=== PATIENT | male | born 1935 | race Caucasian/White ===

== ENCOUNTER → 2020-10-17 | Outpatient (CLI) | payer MEDICARE ==
[~2020-10-17] MED LIST: GADOTERATE 7.5 MMOL/15ML VIAL. IVP ONE
--- NOTE | 2020-10-17 15:29 | KCIC ---
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 Technique: Unenhanced T1-weighted sagittal and axial and FLAIR, T2-weighted, gradient echo and diffus ion-weighted axial images of the brain were obtained. Thin section T1-weighted axial and T2-weighted axial and coronal images through the IACs were obtained. After the intravenous administration of 10 c c of Clariscan, enhanced T1-weighted axial and coronal images of the brain were obtained. Additionall y enhanced thin section T1-weighted axial and coronal images through the IACs were obtained. Findings:No previous imaging studies are available for comparison There is generalized parenchymal atrophy. Patchy, confluent and multiple small focal areas of abnorma lly increased signal intensity are seen within the periventricular and subcortical white matter poste rolateral hemispheres on FLAIR and T2-weighted images consistent with areas of small vessel ischemic disease. No acute parenchymal abnormality is seen. No extra-axial fluid collection is seen. There is no MRI evidence of acute ischemia/infarction. No abnormal area contrast enhancement is seen. MRI images through the IACs are within normal limits. No abnormal soft tissue mass or area of abnorma l contrast enhancement is seen. The patient is post ethmoidectomy bilaterally. Postsurgical changes are seen involving the medial wal ls of both maxillary sinuses. Mild to moderate mucosal thickening is seen throughout the remaining pa ranasal sinuses. There is a minimal right mastoid effusion. Normal flow voids are seen within the moises or vascular structures surrounding the brain parenchyma. Impression: 1. No acute parenchymal abnormality is seen. 2. Negative MRI of the IACs. Electronically signed by: Vinay Navarrete MD (10/17/2020 3:26 PM) [place] [id number]
== END ==
LOC: KCIC MRI 09:50
PROVIDERS: ATTEND Otolaryngology
DX: H91.8X2 Other specified hearing loss, left ear (principal)
CPT/HCPCS: 70553; 82565; A9575

== ENCOUNTER 2021-11-13 12:21 | Emergency (ER) | payer MEDICARE ==
[~2021-11-13] VITALS: Ht 172.7 cm; Wt 63.6 kg
--- NOTE | 2021-11-13 13:35 | RAD ---
Exam Date: 11/13/2021 1:[address] HEAD AND C-SPINE WO Indication: Reason: fall down stairs / Spl. Instructions: / History: . One or more of the following dose reduction techniques were utilized: *Automated exposure control (AEC) *Adjustment of mA and/or kV according to patient size *Use of iterative reconstruction technique *CT scan done according to ALARA, or ALARA/IMAGE GENTLY EXAMINATION: CT OF THE HEAD WITHOUT CONTRAST INDICATION: Trauma, head injury, headache; TECHNIQUE: Noncontrast helical axial CT images of the head were obtained. FINDINGS: The ventricles and sulci are prominent consistent with cerebral volume loss. Patchy ill-defined low attenuation areas in the subcortical and periventricular white matter bilaterally are consistent with microvascular disease. There is no evidence of acute intracranial hemorrhage, extra-axial collecti on, mass effect, midline shift, or acute territorial infarct. No lesion of the skull base or the calv arium is seen. The visualized mastoid air cells, and orbits are normal in appearance. There is parti al opacification of the paranasal sinuses. Postoperative changes of left middle meatal antrostomies are noted. IMPRESSION: No evidence for acute intracranial abnormality. Volume loss and microvascular disease. EXAMINATION: CT OF THE CERVICAL SPINE WITHOUT CONTRAST Clinical Indication: Cervical spine pain after trauma Technique: Thin cut helical axial CT images through the cervical spine were obtained without contrast on a multi-detector CT scanner. Source data was then reconstructed into sagittal and coronal planes. Findings: There is minimal grade 1 anterolisthesis of C2 on C3, likely degenerative. Moderate multilevel degen erative changes are noted.. Vertebral body heights are maintained without acute fracture. No significant prevertebral soft tissue swelling is demonstrated. No severe osseous central canal stenosis is seen. Impression: No evidence of acute cervical spine fracture. Moderate degenerative changes noted. Electronically signed by: Russell Jo MD (11/13/2021 1:32 PM) [facility]
--- NOTE | 2021-11-13 13:48 | PHYS DOC ---
Past Medical History Past Medical History: No Pertinent History Additional Past Medical Histor: presbycusis (KARISSA WOOD) Past Surgical History: No Surgical History (KARISSA WOOD) Smoking Status: Former Smoker Alcohol Use: None Drug Use: None (KARISSA WOOD) General Adult EDM: Chief Complaint: LOWER EXT PAIN HPI: HPI: Patient is a 86 year old male who presents with left-sided shoulder, hip, or leg pain after a gun case fell on him. He was moving the gun safe up some stairs on a [place] with a friend. They got about 4 steps up when the safe fell onto the patient, causing him to fall to his left side. Patient's friend at bedside was further up the stairs, while the patient was behind the safe on the stairs. Patient's friend states that the safe had "some momentum" when it fell. Patient does not take any daily medications, including blood thinners. He is describes his pain as "soreness." He has a complaint of a small laceration to the left mckeon as well. Patient denies head trauma, loss of consciousness, headache, neck pain, focal weakness. (KARISSA WOOD) Review of Systems: Review of Systems: Constitutional: Denies fever, chills or generalized weakness Eyes: Denies change in visual acuity, visual field deficits or discharge HENT: Denies ear pain, nasal congestion or sore throat Respiratory: Denies cough or shortness of breath Cardiovascular: Denies chest pain, palpitations or edema GI: Denies abdominal pain, nausea, vomiting, bloody stools or diarrhea : Denies dysuria or hematuria Musculoskeletal: See HPI Integument: Denies rash or other skin lesion Neurologic: See HPI (KARISSA WOOD) Heart Score: C/O Chest Pain: No (KARISSA WOOD) Allergies: Allergies: Allergies Coded Allergies Type Severity Reaction Last Updated Verified No Known Drug Allergies 12/28/13 No (KARISSA WOOD) Physical Exam: PE: Constitutional: Well developed, well nourished, no acute distress, non-toxic appearance. HENT: Normocephalic, atraumatic, bilateral external ears without deformity/ecchymosis or discharge, oropharynx moist, no oral exudates, nose without deformity or discharge. Eyes: PERRLA, EOMI, conjunctiva normal, no discharge. Neck: Normal range of motion, no step-off, no midline tenderness, no paraspinal tenderness, supple, no stridor. Cardiovascular: Heart rate regular rhythm, no murmur. Lungs & Thorax: Bilateral breath sounds clear to auscultation. Abdomen: Bowel sounds normal, soft, no tenderness, no masses, no pulsatile masses. Skin: 1 cm laceration to medial aspect L mckeon, wound with some active bleeding on exam (pressure dressing subsequently applied). Warm, dry, no erythema, no rash. Back: No stepoff, no midline tenderness, no paraspinal tenderness. Extremities: Left hip tender to palpation distal to the iliac crest, left lower extremity held in external rotation, medial aspect L knee with swelling and tenderness, open wound medial aspect L mckeon (see above) with surrounding tenderness and edema. Neurologic: Alert and oriented x4, sensory function intact bilateral lower extremities, range of motion limited in left lower extremity hip and knee, great toe dorsiflexion intact, distal pulses 2+ bilaterally, no focal deficits noted. (KARISSA WOOD) Current Patient Data: Labs: Laboratory Tests Test 11/13/21 14:00 White Blood Count 18.7 x10^3/uL (4.0-11.0) Red Blood Count 4.18 x10^6/uL (4.30-5.70) Hemoglobin 12.9 g/dL (13.0-17.5) Hematocrit 38.5 % (39.0-53.0) Mean Corpuscular Volume 92 fL (79-100) Mean Corpuscular Hemoglobin 31 pg (25-35) Mean Corpuscular Hemoglobin Concent 34 g/dL (31-37) Red Cell Distribution Width 13.4 % (11.5-14.5) Platelet Count 165 x10^3/uL (140-400) Neutrophils (%) (Auto) 83 % (31-73) Lymphocytes (%) (Auto) 9 % (24-48) Monocytes (%) (Auto) 7 % (0-9) Eosinophils (%) (Auto) 0 % (0-3) Basophils (%) (Auto) 1 % (0-3) Neutrophils # (Auto) 15.6 x10^3/uL (1.8-7.7) Lymphocytes # (Auto) 1.6 x10^3/uL (1.0-4.8) Monocytes # (Auto) 1.4 x10^3/uL (0.0-1.1) Eosinophils # (Auto) 0.0 x10^3/uL (0.0-0.7) Basophils # (Auto) 0.1 x10^3/uL (0.0-0.2) Sodium Level 140 mmol/L (136-145) Potassium Level 3.9 mmol/L (3.5-5.1) Chloride Level 104 mmol/L (98-107) Carbon Dioxide Level 24 mmol/L (21-32) Anion Gap 12 (6-14) Blood Urea Nitrogen 25 mg/dL (8-26) Creatinine 1.4 mg/dL (0.7-1.3) Estimated GFR (Cockcroft-Gault) 48.3 BUN/Creatinine Ratio 18 (6-20) Glucose Level 189 mg/dL (70-99) Calcium Level 8.5 mg/dL (8.5-10.1) Total Bilirubin 0.4 mg/dL (0.2-1.0) Aspartate Amino Transf (AST/SGOT) 22 U/L (15-37) Alanine Aminotransferase (ALT/SGPT) 27 U/L (16-63) Alkaline Phosphatase 67 U/L (46-116) Total Protein 6.8 g/dL (6.4-8.2) Albumin 3.4 g/dL (3.4-5.0) Albumin/Globulin Ratio 1.0 (1.0-1.7) Vital Signs: Vital Signs Date Time Temp Pulse Resp B/P (MAP) Pulse Ox O2 Delivery O2 Flow Rate FiO2 11/13/21 12:35 97.6 89 16 95/57 (70) 97 Room Air 97.6 (KARISSA WOOD) Radiology/Procedures: Radiology/Procedures: PROCEDURE: CT HEAD AND CERVICAL SPINE WO Exam Date: 11/13/2021 1:[address] HEAD AND C-SPINE WO Indication: Reason: fall down stairs / Spl. Instructions: / History: . One or more of the following dose reduction techniques were utilized: *Automated exposure control (AEC) *Adjustment of mA and/or kV according to patient size *Use of iterative reconstruction technique *CT scan done according to ALARA, or ALARA/IMAGE GENTLY EXAMINATION: CT OF THE HEAD WITHOUT CONTRAST INDICATION: Trauma, head injury, headache; TECHNIQUE: Noncontrast helical axial CT images of the head were obtained. FINDINGS: The ventricles and sulci are prominent consistent with cerebral volume loss. Patchy ill-defined low attenuation areas in the subcortical and periventricular white matter bilaterally are consistent with microvascular disease. There is no evidence of acute intracranial hemorrhage, extra-axial collection, mass effect, midline shift, or acute territorial infarct. No lesion of the skull base or the calvarium is seen. The visualized mastoid air cells, and orbits are normal in appearance. There is partial opacification of the paranasal sinuses. Postoperative changes of left middle meatal antrostomies are noted. IMPRESSION: No evidence for acute intracranial abnormality. Volume loss and microvascular disease. EXAMINATION: CT OF THE CERVICAL SPINE WITHOUT CONTRAST Clinical Indication: Cervical spine pain after trauma Technique: Thin cut helical axial CT images through the cervical spine were obtained without contrast on a multi-detector CT scanner. Source data was then reconstructed into sagittal and coronal planes. Findings: There is minimal grade 1 anterolisthesis of C2 on C3, likely degenerative. Moderate multilevel degenerative changes are noted.. Vertebral body heights are maintained without acute fracture. No significant prevertebral soft tissue swelling is demonstrated. No severe osseous central canal stenosis is seen. Impression: No evidence of acute cervical spine fracture. Moderate degenerative changes noted. Electronically signed by: Russell Jo MD (11/13/2021 1:32 PM) [facility] EX[facility]: Left shoulder, 3 views; left knee, 2 views; pelvis and left hip, 4 views. HISTORY: Fall. Pain. COMPARISON: None. FINDINGS: Left knee: 3 views of the left knee are obtained. There is a comminuted fracture of the proximal tibial metadiaphysis. There is also a nondisplaced fracture of the proximal fibular metaphysis. There is severe medial compartment joint space narrowing. There is moderate medial and lateral compartment and mild patellofemoral compartment spurring. There is enthesopathy along the superior patella. There is a small knee effusion. There are vascular calcifications. Left shoulder: 3 views of the left shoulder obtained. There is superior migration of the humeral head due to a chronic rotator cuff tear. There is glenohumeral joint spurring. There is a corticated ossicle along the superior aspect of the acromial clavicular joint due to osteoarthritis. There is degenerative change involving the visualized cervical spine, not formally assessed on this exam. Pelvis and left hip: A frontal view the pelvis and 3 views of the left hip are obtained. There is a displaced left femoral intertrochanteric fracture. There is also a displaced left inferior pubic ramus fracture and right superior pubic ramus fracture. There is a suspected nondisplaced left superior pubic ramus fra cture. There is mild bilateral hip osteoarthritis. There are degenerative changes involving the visualized lower lumbar spine. There is bone demineralization. IMPRESSION: 1. Comminuted fracture of the proximal left tibial metadiaphysis and nondisplaced fracture the proximal left fibular metaphysis. 2. Left femoral trochanter fracture and acute appearing left inferior pubic ramus and bilateral superior pubic ramus fractures. The pelvic fractures can be better assessed with a pelvic CT. 3. Small left knee effusion and moderate to severe medial compartment predominant osteoarthritis of the left knee. 4. Mild bilateral hip osteoarthritis. 5. Superior migration of the left humeral head due to a chronic rotator cuff tear. This is superimposed on mild left glenohumeral and acromioclavicular joint osteoarthritis. 6. Suspected bone demineralization. Electronically signed by: Ayanna Parker MD (11/13/2021 2:13 PM) [id number] PROCEDURE: PORTABLE CHEST 1V XR CHEST 1V History: Hip fracture. Comparison: None. Technique: Portable AP radiograph of the chest. Findings: The lungs are adequately inflated. No airspace consolidation, pleural effusion or pneumothorax. There is an ossific density at the right lower lung pleural surface which may represent rib lesion or pleural ossification. Cardiac silhouette and pulmonary vasculature are within normal limits. Calcification of the aortic arch. Degenerative changes of bilateral shoulders with high riding humeral heads, likely represent chronic rotator cuff tear. Impression: 1. No acute cardiopulmonary findings. Electronically signed by: Will Gottlieb MD (11/13/2021 2:15 PM) [id number] (KARISSA WOOD) Course & Med Decision Making: Course & Med Decision Making Pertinent Labs and Imaging studies reviewed. (See chart for details) 86 y/o M without significant PMHx presents after a gun safe fell onto him. Workup will include: labs, CXR, films of left shoulder/hip/pelvis/knee, CT head and neck. Patient declines medications for pain at this time. Plain films reveal multiple fractures of pelvis, left hip, left tibia and left fibula. Orthopedic care here requests transfer to higher level of care. Patient accepted at by trauma Dr. Richter. After morphine administration, patient became extremely nauseated and vomited. He was subsequently given zofran. He did need an additional dose shortly after. Patient's blood pressure also dropped. Due to multitrauma state, type and screen as well as blood ordered in preparation should pressures not improve with fluid administration and control of emesis. While awaiting transportation, we have concern about developing compartment syndrome. PT pulse intact, however patient does not have DP pulse by palpation, doppler or US (performed by Dr. Bryan at bedside). LLE is also cooler than RLE and exhibits more pallor. transfer center contacted and we requested emergent transport for further evaluation and management of deteriorating condition. Emergent transport to initiated. Images clouded and transfer team will be made aware of any further changes in patient condition. (KARISSA WOOD) Course & Med Decision Making I became involved in this patient's care part way through their emergency department stay. As outlined he has sustained multiple orthopedic injuries including pelvic fractures, left hip fracture, and open tib-fib fracture. Has received Ancef. I was called in the room as nursing was concerned that his left lower extremity had become numb and cooler than previous. I was able to find a PT pulse with Doppler, but was unable to palpate or locate DP pulse as described above. Patient was emergently transferred. He did have an episode of self resolving hypotension, that may be related to vasovagal from vomiting, but could potentially be from bleeding into his pelvis given his pelvic fractures. We obtained a CT of the pelvis, but it was not read by radiology at the time of the patient's transfer. The report is now available and copied below. [facility] [address] [place] [address] IMAGING REPORT Signed PATIENT: FELIBERTO STEPHENS ACCOUNT: [id number] : 1935 LOCATION: ER AGE: 86 SEX: M EXAM STATUS: REG ER ORD. PHYSICIAN: KARISSA WOOD REASON: trauma, pelvic fx, hip fx PROCEDURE: CT ABDOMEN PELVIS WO CONTRAST PQRS Compliance Statement: One or more of the following individualized dose reduction techniques were utilized for this examination: 1. Automated exposure control 2. Adjustment of the mA and/or kV according to patient size 3. Use of iterative reconstruction technique CT abdomen/pelvis without contrast 11/13/2021 2:45 PM INDICATION: Trauma. Pelvic fracture and hip fracture. COMPARISON: Pelvis and hip radiograph 11/13/2021 TECHNIQUE: Multiple axial CT images of the abdomen and pelvis were obtained without intravenous contrast. Coronal and sagittal reformats are provided. FINDINGS: There is subsegmental atelectasis at the left lung base. Mild centrilobular pulmonary emphysema. Heart size within normal limits. Moderate calcified atheromatous plaque involving the thoracic and abdominal aorta. Evaluation of solid abdominal viscera is limited by lack of intravenous contrast. Liver, spleen, adrenal glands, pancreas and gallbladder are normal in appearance. 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 Dense calcified atheromatous plaque is identified. No pathologically enlarged lymph nodes are identified in abdomen and pelvis. There is no abdominal free fluid. The kidneys are relatively symmetric in appearance. There is no suspicious renal mass within the limitations of a noncontrast examination. There is no hydronephrosis. There are no calculi within the kidneys, ureters or urinary bladder. Small and large bowel are normal in caliber. There is no evidence for bowel obstruction. There are no pericolonic inflammatory changes. A normal, nondilated appendix is visualized without adjacent inflammatory changes. Bladder is within normal limits in degree of distention. Prostate is within normal limits. There is a comminuted left intertrochanteric fracture with displacement of the lesser trochanter. Most fragment of the lesser trochanter measures 5.4 cm. There is mild valgus angulation of the fracture fragment. Femoral acetabular joint is well aligned. There is a fracture line which extends to the anterior, left acetabulum with predominant involvement of the left superior pubic ramus which extends to the pubic root. There is a comminuted fracture of the right pubic root with involvement of the right superior and inferior pubic rami. There is a mildly displaced left inferior pubic ramus fracture. There is a nondisplaced fracture of the left S1 sacral lorenzo. Sacroiliac joints are well aligned. Coccyx is intact. No significant compression fracture. Chronic compression deformity at T12 measuring 25 percent height loss. Along the pubic root there is extensive hematoma. No diastases of the pubic symphysis. Hematoma is predominantly extraperitoneal along the anterior pelvis. IMPRESSION: 1. Comminuted left intertrochanteric fracture with moderate displacement and valgus angulation. There is displacement of the lesser trochanter. No dislocation of the femoral acetabular joint. 2. There are fractures of the pubic root bilaterally with involvement of the superior and inferior bilateral pubic rami. Left superior pubic ramus fracture extends to the left anterior acetabulum. 3. There is a nondisplaced fracture of the left S1 sacral lorenzo. No diastases of the sacroiliac joints are pubic symphysis. 4. Chronic height loss identified at T12 with 25 percent height loss. 5. Extraperitoneal pelvic hematoma along the anterior pelvis adjacent to the superior pubic rami. Electronically signed by: Behzad Lei MD (11/13/2021 3:43 PM) [facility] DICTATED and SIGNED BY: BEHZAD LEI MD DATE: 11/13/21 [id number] (HERRERA BRYAN MD) Bella Disclaimer: Bella Disclaimer: This electronic medical record was generated, in whole or in part, using a voice recognition dictation system. (KARISSA WOOD) Departure Departure Impression: Primary Impression: Multiple fractures of pelvis Qualified Codes: S32.82XA - Multiple fractures of pelvis without disruption of pelvic ring, initial encounter for closed fracture Additional Impressions: Unspecified trochanteric fracture of left femur, initial encounter for closed fracture Open fracture of left proximal tibia Open left fibular fracture Contusion of left shoulder, initial encounter Disposition: 02 SHORT TERM HOSPITAL Condition: GUARDED Referrals: NON,STAFF (PCP) KARISSA WOOD Nov 13, 2021 13:48 HERRERA BRYAN MD Nov 13, 2021 15:58
[2021-11-13] MEDS: MORPHINE SULFATE 2 MG/ML INJ. IVP ONE (14:11)
--- NOTE | 2021-11-13 14:15 | RAD ---
EXAM: Left shoulder, 3 views; left knee, 2 views; pelvis and left hip, 4 views. HISTORY: Fall. Pain. COMPARISON: None. FINDINGS: Left knee: 3 views of the left knee are obtained. There is a comminuted fracture of the proximal tibi al metadiaphysis. There is also a nondisplaced fracture of the proximal fibular metaphysis. There is severe medial compartment joint space narrowing. There is moderate medial and lateral compartment and mild patellofemoral compartment spurring. There is enthesopathy along the superior patella. There is a small knee effusion. There are vascular calcifications. Left shoulder: 3 views of the left shoulder obtained. There is superior migration of the humeral head due to a chronic rotator cuff tear. There is glenohumeral joint spurring. There is a corticated ossi alexa along the superior aspect of the acromial clavicular joint due to osteoarthritis. There is degene rative change involving the visualized cervical spine, not formally assessed on this exam. Pelvis and left hip: A frontal view the pelvis and 3 views of the left hip are obtained. There is a d isplaced left femoral intertrochanteric fracture. There is also a displaced left inferior pubic ramus fracture and right superior pubic ramus fracture. There is a suspected nondisplaced left superior pu bic ramus fracture. There is mild bilateral hip osteoarthritis. There are degenerative changes involv ing the visualized lower lumbar spine. There is bone demineralization. IMPRESSION: 1. Comminuted fracture of the proximal left tibial metadiaphysis and nondisplaced fracture the proxim al left fibular metaphysis. 2. Left femoral trochanter fracture and acute appearing left inferior pubic ramus and bilateral super ior pubic ramus fractures. The pelvic fractures can be better assessed with a pelvic CT. 3. Small left knee effusion and moderate to severe medial compartment predominant osteoarthritis of t he left knee. 4. Mild bilateral hip osteoarthritis. 5. Superior migration of the left humeral head due to a chronic rotator cuff tear. This is superimpos ed on mild left glenohumeral and acromioclavicular joint osteoarthritis. 6. Suspected bone demineralization. Electronically signed by: Ayanna Parker MD (11/13/2021 2:13 PM) [id number]
[2021-11-13 14:17] LABS: BASO # 0.1 x10^3/uL (0.0-0.2); BASO % 1 % (0-3); EOS % 0 % (0-3); HEMATOCRIT 38.5 % (39.0-53.0); HEMOGLOBIN 12.9 g/dL (13.0-17.5); LYMPH # 1.6 x10^3/uL (1.0-4.8); LYMPH % 9 % (24-48); MEAN CORPUSCULAR HEMOGLOBIN 31 pg (25-35); MEAN CORPUSCULAR HGB CONC 34 g/dL (31-37); MEAN CORPUSCULAR VOLUME 92 fL (79-100); MONO # 1.4 x10^3/uL (0.0-1.1); MONO % 7 % (0-9); NEUT # 15.6 x10^3/uL (1.8-7.7); NEUT % 83 % (31-73); PLATELET COUNT 165 x10^3/uL (140-400); RED BLOOD COUNT 4.18 x10^6/uL (4.30-5.70); RED CELL DISTRIBUTION WIDTH 13.4 % (11.5-14.5); WHITE BLOOD COUNT 18.7 x10^3/uL (4.0-11.0)
--- NOTE | 2021-11-13 14:18 | RAD ---
XR CHEST 1V History: Hip fracture. Comparison: None. Technique: Portable AP radiograph of the chest. Findings: The lungs are adequately inflated. No airspace consolidation, pleural effusion or pneumothorax. There is an ossific density at the right lower lung pleural surface which may represent rib lesion or pleu ral ossification. Cardiac silhouette and pulmonary vasculature are within normal limits. Calcificatio n of the aortic arch. Degenerative changes of bilateral shoulders with high riding humeral heads, lik eddie represent chronic rotator cuff tear. Impression: 1. No acute cardiopulmonary findings. Electronically signed by: Will Gottlieb MD (11/13/2021 2:15 PM) [id number]
[2021-11-13] MEDS ORDERED: ONDANSETRON PF 4 MG/2 ML VIAL. ONE (14:24)
[2021-11-13] MEDS: ONDANSETRON PF 4 MG/2 ML VIAL. IVP ONE ×2 (14:26→15:15)
[2021-11-13 14:44] LABS: CALCIUM 8.5 mg/dL (8.5-10.1); CREATININE 1.4 mg/dL (0.7-1.3); GFR 48.3; POTASSIUM 3.9 mmol/L (3.5-5.1)
[2021-11-13] MEDS: DIPHTH,PERTUSS(ACELL),TET TOX 0.5 ML DISP.SYRIN. VAX IM ONE (14:45)
[2021-11-13 14:48] LABS: ALBUMIN 3.4 g/dL (3.4-5.0); TOTAL BILIRUBIN 0.4 mg/dL (0.2-1.0); TOTAL PROTEIN 6.8 g/dL (6.4-8.2)
[2021-11-13] MEDS: IV NORMAL SALINE 1000ML BAG 1,000 ML IV ONE (14:56)
[2021-11-13 15:09] VITALS: BP 138/76
--- NOTE | 2021-11-13 15:45 | RAD ---
PQRS Compliance Statement: One or more of the following individualized dose reduction techniques were utilized for this examinat ion: 1. Automated exposure control 2. Adjustment of the mA and/or kV according to patient size 3. Use of iterative reconstruction technique CT abdomen/pelvis without contrast 11/13/2021 2:45 PM INDICATION: Trauma. Pelvic fracture and hip fracture. COMPARISON: Pelvis and hip radiograph 11/13/2021 TECHNIQUE: Multiple axial CT images of the abdomen and pelvis were obtained without intravenous contr ast. Coronal and sagittal reformats are provided. FINDINGS: There is subsegmental atelectasis at the left lung base. Mild centrilobular pulmonary emphysema. Hear t size within normal limits. Moderate calcified atheromatous plaque involving the thoracic and abdomi nal aorta. Evaluation of solid abdominal viscera is limited by lack of intravenous contrast. Liver, s pleen, adrenal glands, pancreas and gallbladder are normal in appearance. 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 Dense calcified atheromatous plaque is identified. No pa thologically enlarged lymph nodes are identified in abdomen and pelvis. There is no abdominal free fl uid. The kidneys are relatively symmetric in appearance. There is no suspicious renal mass within the limitations of a noncontrast examination. There is no hydronephrosis. There are no calculi within th e kidneys, ureters or urinary bladder. Small and large bowel are normal in caliber. There is no evide nce for bowel obstruction. There are no pericolonic inflammatory changes. A normal, nondilated append ix is visualized without adjacent inflammatory changes. Bladder is within normal limits in degree of distention. Prostate is within normal limits. There is a comminuted left intertrochanteric fracture with displacement of the lesser trochanter. Mos t fragment of the lesser trochanter measures 5.4 cm. There is mild valgus angulation of the fracture fragment. Femoral acetabular joint is well aligned. There is a fracture line which extends to the ant erior, left acetabulum with predominant involvement of the left superior pubic ramus which extends to the pubic root. There is a comminuted fracture of the right pubic root with involvement of the right superior and inferior pubic rami. There is a mildly displaced left inferior pubic ramus fracture. Th ere is a nondisplaced fracture of the left S1 sacral lorenzo. Sacroiliac joints are well aligned. Coccyx is intact. No significant compression fracture. Chronic compression deformity at T12 measuring 25 pe rcent height loss. Along the pubic root there is extensive hematoma. No diastases of the pubic symphy sis. Hematoma is predominantly extraperitoneal along the anterior pelvis. IMPRESSION: 1. Comminuted left intertrochanteric fracture with moderate displacement and valgus angulation. There is displacement of the lesser trochanter. No dislocation of the femoral acetabular joint. 2. There are fractures of the pubic root bilaterally with involvement of the superior and inferior bi lateral pubic rami. Left superior pubic ramus fracture extends to the left anterior acetabulum. 3. There is a nondisplaced fracture of the left S1 sacral lorenzo. No diastases of the sacroiliac joints are pubic symphysis. 4. Chronic height loss identified at T12 with 25 percent height loss. 5. Extraperitoneal pelvic hematoma along the anterior pelvis adjacent to the superior pubic rami. Electronically signed by: Zahra Covington MD (11/13/2021 3:43 PM) [facility]
[2021-11-13 16:05] LABS: % ATYL 3 % (0-0); % BANDS 20 % (0-9); % BASOS 1 % (0-3); % LYMPHS 3 % (24-48); % MONOS 9 % (0-10); % SEGS 64 % (35-66)
[2021-11-13 16:06] LABS: PLT ESTIMATE ADEQUATE (ADEQUATE)
== END 2021-11-13 15:40 | disposition short-term general hospital (02) ==
LOC: ER 12:21
DX: S32.82XA Multiple fractures of pelvis without disruption of pelvic ring, initial encounter for closed fracture (principal); Z20.822 Contact with and (suspected) exposure to COVID-19; S72.102A Unspecified trochanteric fracture of left femur, initial encounter for closed fracture; S82.102B Unspecified fracture of upper end of left tibia, initial encounter for open fracture type I or II; S82.402B Unspecified fracture of shaft of left fibula, initial encounter for open fracture type I or II; S40.012A Contusion of left shoulder, initial encounter; R07.89 Other chest pain; Z87.891 Personal history of nicotine dependence; W10.8XXA Fall (on) (from) other stairs and steps, initial encounter; Y93.89 Activity, other specified; Y92.89 Other specified places as the place of occurrence of the external cause; Y99.8 Other external cause status
CPT/HCPCS: 36415; 70450; 71045; 72125; 73030; 73502; 73560; 74176; 80053; 85007; 85025; 87426; 96361; 96365; 96375; 99285; J0690; J2270; J2405; J7030; U0003; U0005